=== PATIENT | male | born 1985 | race Caucasian/White ===

== ENCOUNTER 2023-06-01 08:14 | Outpatient (CLI) | payer BC, SELFPAY ==
--- NOTE | 2023-06-01 08:22 | ECG_ITS ---
Measurements Intervals [place] Rate: 61 P: 27 OR: 186 QRS: -11 QRSD: 81 T: 8 QT: 385 QTc: 390 Interpretive Statements SINUS RHYTHM NORMAL ELECTROCARDIOGRAM NO PREVIOUS ECG AVAILABLE FOR COMPARISON Electronically Signed On 06-01-2023 13:27:12 FLIGHT OPERATIONS MANAGER by Shaan James M.D.
== END 2023-06-01 08:15 | disposition home or self-care (01) ==
LOC: ANHSURGERY 08:17
PROVIDERS: PCP Family Medicine; Visit Provider Surgery
DX: Z01.818 Encounter for other preprocedural examination (principal); I10 Essential (primary) hypertension; K42.9 Umbilical hernia without obstruction or gangrene
CPT/HCPCS: 36415; 86850; 86900; 86901; 93005

== ENCOUNTER 2023-06-05 00:17 | Day surgery (SDC) | payer BC, SELFPAY ==
[2023-05-29 12:19] VITALS: BMI 30.1
--- NOTE | 2023-05-29 12:22 | PC.NURSE ---
Report to the Outpatient Waiting Room, entrance under the green pavilion located off [facility], at time 6:30 on date 06/05/23. Planned Procedure Time: 8:30. Time changes happen often and if your time is changed the preop area will call you the afternoon before. - You and your visitor will be asked to self-screen and do not enter if you have any COVID symptoms. - A mask is optional within the hospital at this time. Patients may have clear liquids (water, carbonated beverages, clear teas, apple juice) until 3 hours prior to surgery (7:30) with a maximum of 20 ounces. - No food from midnight until time of surgery Take the following medications with a SIP of water the morning of surgery: NONE DO NOT STOP ANY OF YOUR OTHER PRESCRIPTION MEDICATIONS PRIOR TO SURGERY ?EXCEPT THE FOLLOWING Medications to discontinue per physician: N/A Date to take last dose: N/A Please no make-up, nail belarusian, hairspray, perfume, deodorant, or body powder the day of surgery. No jewelry (including any body piercings) or valuables the day of surgery, leave them at home. Please take a shower or bath the night before, or the morning of, surgery with an antibacterial soap. Wear comfortable, loose fitting clothing. - Jewelry must be removed prior to entering the operating room. Rings and piercings that are not removed may be cut off. - The hospital will not accept responsibility for valuables. - Please leave all valuables, including medications, at home the day of surgery. If you are going home after surgery, a licensed local intermodal truck driver must drive you home. - NO public transportation without another adult if you receive anesthesia. - We recommend that an adult stay with you for 24 hours following discharge. - We also recommend that you do not drive, make important decision, drink alcoholic beverages, or take any drugs that were not prescribed by your health care provider for at least 24 hours after your discharge time. Follow any additional instructions given to you from your surgeon. If you or anyone in your household have experienced Covid symptoms in the past week, please notify your surgeon or the nurse liaison at the phone number below for possible testing. Telephone instructions given to PT - JEROD ALEXANDER and asked if any additional questions and then verbalized understanding. Patient advised to call surgeon office or pre surgery nurse liaison [phone] if any additional questions.
[2023-06-05] VITALS (9 sets, daily range): BP systolic 117–145; BP diastolic 79–90; PULSE 56–71; RESP 11–16; TEMP 36.2–37.3; O2SAT 94–100
[2023-06-05] MEDS: ACETAMINOPHEN 500 MG TABLET 1000 MG PO (07:16)
[2023-06-05] MEDS: LACTATED RINGERS 1,000 ML 30 ML IV CONT ×2 (07:16→10:04)
[2023-06-05] MEDS: KETOROLAC 15 MG/ML VIAL (*BKC) IV PUSH (07:17)
--- NOTE | 2023-06-05 07:20 | PM.IMHP ---
H&P: HPI History of Present Illness Date/Time: 06/05/23 07:20 Chief Complaint: umbilical hernia Narrative: 38 yo man presents for umbilical hernia repair. He reports no changes since last seen in office. Review of Systems Review of Systems: All systems reviewed & are unremarkable except as noted in HPI and below Constitutional: Constitutional: Denies chills, Denies fever(s), Denies headache(s) and Denies weight loss Eyes: Eyes: Denies change in vision ENT: Denies dizziness, Denies headache(s), Denies neck mass and Denies throat swelling Cardiovascular: Cardiovascular: Denies chest pain, Denies lightheadedness and Denies dyspnea Respiratory: Respiratory: Denies cough, Denies dyspnea and Denies wheezing Gastrointestinal: Gastrointestinal: Denies abdominal pain, Denies change in bowel habits, Denies nausea and Denies vomiting Genitourinary: Genitourinary: Denies hematuria and Denies dysuria Musculoskeletal: Musculoskeletal: Reports as per HPI Integumentary/Breasts: Skin/Breast: Reports as per HPI Neurologic: Denies dizziness and Denies headache(s) Allergic/Immunologic: Allergic/Immunologic: Denies throat swelling and Denies wheezing [facility] Past Medical History Medical History (Updated 03/09/23 @ 09:57 by Brigitte Dorsey CMA) Hypertension Surgical History Surgical History History of vasectomy December 2022 Family History Family History Other Hypertension Social History Social History Smoking packs per day: 0.5 Smoking cigarettes per day: 10.0 Years smoked: 10 Smoking pack-years: 5.00 Smoking status: Current every day smoker Tobacco type: cigarettes Alcohol intake: current Drinks per week: 2 Substance use: never Substance use type: does not use Living arrangements: with family Spiritual care concerns: No Meds Home Medications and Allergies Home Medications Medication Instructions Recorded Confirmed Type lisinopril 40 mg tablet 40 mg PO HS 03/02/23 05/29/23 History metoprolol succinate 50 mg 50 mg PO HS 03/02/23 05/29/23 History tablet,extended release 24 hr Allergies Allergy/AdvReac Type Severity Reaction Status Date / Time No Known Allergies Allergy Verified 06/05/23 06:42 Exam Const: General: no acute distress and alert Orientation/consciousness: patient oriented x3 HENMT: Head: normocephalic and atraumatic Ears: hearing grossly normal bilaterally Face/Nose/Sinus: Normal nares present Mouth: Yes Normal oral and palatal mucosa present Eyes: Periorbital: periorbital findings normal Sclera: sclerae normal EOM: EOMs intact bilaterally Neck: Neck: normal visual inspection, no lymphadenopathy and trachea midline Chest: Chest palpation & inspection: normal inspection of the chest Resp: Effort & Inspection: normal respiratory effort Auscultation: clear to auscultation bilaterally Cardio: Jugular venous distension: no JVD Rate: regular rate Rhythm: regular rhythm Heart sounds: S1 normal heart sound present and S2 normal heart sound present Peripheral pulses: Peripheral pulses 2+ throughout GI: Inspection: normal to inspection GI Palp: Yes Soft to palpation, No Tenderness to palpation present (GI), No Guarding due to palpation present (GI), Yes Hernia present umbilical (2-3cm) and No Rebound tenderness present Percussion: Yes normal to percussion Auscultation: normal bowel sounds : General: Yes no CVA tenderness Back/Spine/Pelvis: Back: no CVA tenderness Neuro: General: patient oriented x3, no focal motor deficits and CN's II-XI intact bilaterally Cognition (Neuro): normal cognition Speech: normal speech Motor exam (neuro): 5/5 motor strength present throughout Extrem: General: capillary refill normal and no clubbing, cyanosis or edema Assessment and Plan Asse
--- NOTE | 2023-06-05 07:21 | WPDHPUPDATE1 ---
History and Physical Update Update Date/Time: 06/05/23 07:21 History and Physical has been reviewed, including an updated exam of the patient. There are NO changes in the patient's condition. Risks, benefits, and alternatives have been discussed and questions answered. Patient agrees to proceed with procedure.
--- NOTE | 2023-06-05 08:09 | P.PNAN_ITS ---
Anes - Initial Pre Proc Eval Procedure: Operation Date: 06/05/23 08:30 Proposed Procedures p Laparoscopic Umbilical Hernia Repair with Mesh, Davinci Assisted - Chente Edwards DO Date/Time: 06/05/23 08:09 Surgeon: Chente Edwards DO Pre Op Diagnosis: Umb Hernia 2-3CM Patient Data Age: 38 Gender: M Height: 1.75 m Weight: 93.9 kg Last Vital Signs Temp 99.1 F 06/05/23 07:30 Pulse 71 06/05/23 07:30 Resp 16 06/05/23 07:30 BP 129/81 06/05/23 07:30 Pulse Ox 100 06/05/23 07:30 O2 Del Method Room Air 06/05/23 07:30 Allergies Allergy/AdvReac Type Severity Reaction Status Date / Time No Known Allergies Allergy Verified 06/05/23 06:42 Home Medications Medication Instructions Recorded Confirmed Type lisinopril 40 mg tablet 40 mg PO HS 03/02/23 05/29/23 History metoprolol succinate 50 mg 50 mg PO HS 03/02/23 05/29/23 History tablet,extended release 24 hr Patient hx anesthesia problems: none Family hx anesthesia problems: none Results Review: All pre-operative results and documents have been reviewed as part of the pre- operative evaluation. [facility] Past Medical History Medical History (Updated 03/09/23 @ 09:57 by Brigitte Dorsey CMA) Hypertension Surgical History Surgical History History of vasectomy December 2022 Family History Family History Other Hypertension Social History Social History Smoking packs per day: 0.5 Smoking cigarettes per day: 10.0 Years smoked: 10 Smoking pack-years: 5.00 Smoking status: Current every day smoker Tobacco type: cigarettes Alcohol intake: current Drinks per week: 2 Substance use: never Substance use type: does not use Living arrangements: with family Spiritual care concerns: No Anes - Eval Final PreProcedure Day of Procedure 06/05/23 08:09 Patient weight: obese Heart: regular rate and rhythm Lungs: clear to auscultation Airway: Mallampati scale class II Neurological: alert and oriented Last oral intake: >/= 8 hours ASA classification: II Emergent: no Anesthetic plan: proceed Anesthesia type and monitoring: general ETT and standard monitoring Results Review: All pre-operative results and documents have been reviewed as part of the pre- operative evaluation. Informed Consent: The patient's anesthetic plan and its attendant risks and benefits were discussed with the patient/family/POA. Questions were solicited and answers provided to the satisfaction of the patient/family/POA.
[2023-06-05] MEDS: ceFAZolin 2 GM/D5W 50 ML 2 GM/50 ML BAG IVPB (08:14)
[2023-06-05] MEDS: BUPIVACAINE/EPINEPHRINE 0.5% 50 ML VIAL 30 ML INFILTRATE (08:42)
--- NOTE | 2023-06-05 09:55 | W.PM.PROC2 ---
Procedure Note - Detailed Date of Procedure 06/05/23 Pre-op Diagnosis Umbilical hernia Post-op Diagnosis Same (3 cm reducible) Procedure Performed Laparoscopic 3 cm umbilical hernia repair with mesh, da Eric assisted Surgeon Chente Edwards DO Anesthesia General and Local (0.5% bupivacaine with epinephrine) Indications This is a 38-year-old man who presented with an umbilical bulge that he 1st noticed about 1 year ago. He had some occasional discomfort with activity. The bulge reduced with laying down. It has not significantly increased in size. He was found to have a reducible umbilical hernia on exam. Discussions were made with the patient about treatment options and decision was made to proceed with robotic assisted laparoscopic umbilical hernia repair with mesh. Findings Laparoscopic 3 cm umbilical hernia repair was performed. The patient was found to have a 3 cm umbilical hernia containing preperitoneal fat. A robotic transabdominal preperitoneal (rTAPP) approach was utilized for repair. A wide preperitoneal pocket was created and the hernia sac and preperitoneal fat was reduced. I then placed a Bard soft mesh 15 cm x 10 cm within the preperitoneal pocket and secured this to the abdominal wall. No specimens were obtained for pathology. Description of Procedure Procedure as well as risks, benefits, and alternatives were discussed with the patient. Written consent was obtained and placed in chart prior to procedure. Patient was brought back to surgical suite. He was placed supine on operating table. Time-out was done to confirm patient and procedure. He was then intubated by the anesthesia department. A bump was placed under his left hip, and the bed was flexed slightly to extend the space between his costal margin and iliac crest. His abdomen was prepped and draped in sterile fashion using chlorhexidine prep. A 5 millimeter incision was made in the left upper quadrant, and a 5 millimeter Optiview trocar was advanced through the abdominal layers under direct visualization. Once inside the abdominal cavity, carbon dioxide insufflation was used to create a pneumoperitoneum. His abdomen was inspected. An 8 millimeter incision was made in the left lower quadrant, and an 8 millimeter robotic trocar was placed under direct visualization. Another 8 millimeter incision was made in the left lateral abdomen, and an 8 millimeter robotic trocar was placed under direct visualization. 0.5% bupivacaine with epinephrine was infiltrated around each port site. The 5 millimeter port was removed, and an 8 mm robotic trocar was placed under direct visualization. The robotic arms were brought up to the patient's bedside and secured to the ports. The camera and instruments were inserted, and I then moved over to the robotic console and took control of the camera and instruments. After careful thorough inspection of the abdominal cavity, I began my dissection at the hernia. The preperitoneal plane was entered in the left upper quadrant using scissors with electrocautery. I then continued the preperitoneal plane caudally along the left lateral abdomen into the left lower quadrant. The plane was then continued to be dissected carefully using scissors with electrocautery and the hernia sac and preperitoneal fat was reduced. I then continued the dissection far enough to the right lateral abdomen to allow for mesh placement. I then measured the hernia size. The hernia measured 3 cm. The fascia was closed using an 0-Stratafix running suture in a vertical fashion. A Bard soft mesh 15 cm x 10 cm was then placed within the preperitoneal pocket. This was oriented vertically with the mesh centered on the hernia defect. The mesh was then secured to the abdominal wall at the center and 4 corners using 3-0 Vicryl simple interrupted sutures. The peritoneum was then closed over the mesh using 3 0 V lock running absorbable suture. The repair was inspected, and one final inspec
[2023-06-05] MEDS: fentaNYL CITRATE INJ (*CRX) 100 MCG/2 ML VIAL 25 MCG IV PUSH ×6 (10:36→10:54)
[2023-06-05] MEDS: ONDANSETRON INJ 4 MG/2 ML VIAL IV PUSH (11:09)
[2023-06-05] MEDS: diphenhydrAMINE HCl INJ 50 MG/ML VIAL 12.5 MG IV PUSH (11:31)
[2023-06-05] MEDS: oxyCODONE HCL (*CRX) 5 MG TAB IR PO (12:05)
== END 2023-06-05 12:34 | disposition home or self-care (01) ==
PROVIDERS: PCP Family Medicine; Visit Provider Surgery
PROC: (CPT 49593; principal; 2023-06-05 08:30)
DX: K42.9 Umbilical hernia without obstruction or gangrene (principal); F17.210 Nicotine dependence, cigarettes, uncomplicated
CPT/HCPCS: 49593; A9270; C1781; J0690; J1100; J1170; J1200; J1885; J2250; J2405; J2704; J3010; J7030; J7120